=== PATIENT | male | born 1965 | race Caucasian/White ===

== ENCOUNTER 2019-01-12 14:01 | Emergency (ER) | payer MEDICARE ==
[~2019-01-12] VITALS: Ht 180.3 cm; Wt 167.8 kg
[~2019-01-12 14:01] MED LIST: ALLO100 PO; ALLO300 PO; ASPI325 PO; ASPI81CH; Depo-Testo100 MG/1 M; ERGO50000 PO; HYDCHL12.5 PO; HYDMOR2 PO; LISI20 PO; MARIJUANA; METF500 PO; OMEP20ER PO; OXYC5 PO; PIOG15 PO; POTCIT10 PO; PROM25 PO; RXHYDMOR2 PO; TAMS.4ER PO
[2019-01-12 15:07] LABS: BASOPHILS ABSOLUTE AUTO 0.07 K/mm3 (0.00-0.23); BASOPHILS PERCENT AUTO 1 % (0-2); EOSINOPHILS ABSOLUTE AUTO 0.11 K/mm3 (0.00-0.68); EOSINOPHILS PERCENT AUTO 1 % (0-6); Hematocrit 43.2 % (37.0-53.0); Hemoglobin 14.2 g/dL (13.5-17.5); IMMATURE GRAN ABSOLUTE AUTO 0.07 K/mm3 (0.00-0.10); IMMATURE GRAN PERCENT AUTO 1 % (0-1); LYMPHOCYTES ABSOLUTE AUTO 3.65 K/mm3 (0.84-5.20); LYMPHOCYTES PERCENT AUTO 24 % (21-46); MONOCYTES ABSOLUTE AUTO 0.73 K/mm3 (0.16-1.47); MONOCYTES PERCENT AUTO 5 % (4-13); Mean Corpuscular HGB 27.8 pg (26.0-34.0); Mean Corpuscular HGB Conc 32.9 g/dL (31.5-36.5); Mean Corpuscular Volume 85 fL (80-100); Mean Platelet Volume 9.3 fL (9.1-12.4); NEUTROPHILS ABSOLUTE AUTO 10.82 K/mm3 (1.96-9.15); NEUTROPHILS PERCENT AUTO 70 % (41-73); Platelet Count 379 K/mm3 (150-400); RDW Coefficient Variation 13.1 % (11.7-14.2); RDW Standard Deviation 40.2 fL (35.1-46.3); White Blood Cell Count 15.45 K/mm3 (4.00-11.30)
[2019-01-12 15:22] LABS: Alanine Aminotransfer (ALT/SGP 38 U/L (12-78); Alk Phos 51 U/L (50-136); Anion Gap 12 mmol/L (6-16); Aspartate Aminotrans (AST/SGOT 15 U/L (12-37); Bilirubin, Total 0.7 mg/dL (0.1-1.0); Blood Urea Nitrogen 27 mg/dL (8-24); Bun/Creatinine Ratio 15.9 (12.0-20.0); CO2, Blood 21 mmol/L (21-32); Calcium, Blood 9.6 mg/dL (8.5-10.1); Chloride, Blood 102 mmol/L (98-108); Globulin, Blood 4.2 g/dL (2.2-4.0); Glomerular Filtration Rate 45 (60-); Glucose, Blood 107 mg/dL (70-99); Magnesium, Blood 2.1 mg/dL (1.6-2.4); Potassium, Blood 4.4 mmol/L (3.5-5.5); Sodium, Blood 135 mmol/L (136-145); Total Protein, Blood 8.2 g/dL (6.4-8.2); Troponin I <0.015 ng/mL (0.000-0.040)
[2019-01-12 18:24] LABS: U Amphetamine Screen Not Detected; U Barbituate Screen Not Detected; U Benzodiazapine Screen Not Detected; U Buprenorphine Screen Not Detected; U Cannabinoids Screen Not Detected; U Cocaine Screen Not Detected; U Methadone Screen Not Detected; U Methamphetamine Screen Not Detected; U Opiates Screen Not Detected; U Oxycodone Screen Not Detected; U Phencyclidine Screen Not Detected; U Propoxyphene Screen Not Detected
== END 2019-01-12 18:43 | disposition home or self-care (01) ==
LOC: ER 14:01
PROVIDERS: Emergency Medicine
DX: R55 Syncope and collapse (principal); E86.0 Dehydration; R53.1 Weakness; Z87.442 Personal history of urinary calculi; Z79.82 Long term (current) use of aspirin; Z79.899 Other long term (current) drug therapy
CPT/HCPCS: 80053; 83735; 84484; 85025; 93005; 93010; J7030; J7120

== ENCOUNTER 2019-10-16 13:44 | Emergency (ER) | payer MEDICARE ==
[~2019-10-16] VITALS: Ht 177.8 cm; Wt 167.8 kg
[2019-10-16 14:18] LABS: BASOPHILS ABSOLUTE AUTO 0.05 K/mm3 (0.00-0.23); BASOPHILS PERCENT AUTO 0 % (0-2); EOSINOPHILS PERCENT AUTO 2 % (0-6); Hematocrit 43.1 % (37.0-53.0); Hemoglobin 14.2 g/dL (13.5-17.5); IMMATURE GRAN ABSOLUTE AUTO 0.06 K/mm3 (0.00-0.10); IMMATURE GRAN PERCENT AUTO 1 % (0-1); LYMPHOCYTES ABSOLUTE AUTO 3.35 K/mm3 (0.84-5.20); LYMPHOCYTES PERCENT AUTO 29 % (21-46); MONOCYTES ABSOLUTE AUTO 0.72 K/mm3 (0.16-1.47); MONOCYTES PERCENT AUTO 6 % (4-13); Mean Corpuscular HGB 27.7 pg (26.0-34.0); Mean Corpuscular HGB Conc 32.9 g/dL (31.5-36.5); Mean Corpuscular Volume 84 fL (80-100); NEUTROPHILS ABSOLUTE AUTO 7.37 K/mm3 (1.96-9.15); NEUTROPHILS PERCENT AUTO 63 % (41-73); Platelet Count 319 K/mm3 (150-400); RDW Standard Deviation 39.8 fL (35.1-46.3); Red Blood Cell Count 5.13 M/mm3 (4.30-5.90); White Blood Cell Count 11.75 K/mm3 (4.00-11.30)
[2019-10-16 14:29] LABS: Alanine Aminotransfer (ALT/SGP 32 U/L (12-78); Albumin, Blood 3.5 g/dL (3.4-5.0); Anion Gap 8 mmol/L (6-16); Aspartate Aminotrans (AST/SGOT 21 U/L (12-37); Blood Urea Nitrogen 23 mg/dL (8-24); Bun/Creatinine Ratio 24.8 (12.0-20.0); CO2, Blood 21 mmol/L (21-32); Calcium, Blood 9.2 mg/dL (8.5-10.1); Chloride, Blood 106 mmol/L (98-108); Creatinine, Blood 0.93 mg/dL (0.60-1.20); Glomerular Filtration Rate >60 (60-); Glucose, Blood 185 mg/dL (70-99); Potassium, Blood 4.5 mmol/L (3.5-5.5); Sodium, Blood 135 mmol/L (136-145)
[2019-10-16 14:33] LABS: Albumin/Globulin Ratio 0.8 (0.8-1.8); Alk Phos 50 U/L (50-136); Bilirubin, Total 0.2 mg/dL (0.1-1.0); Globulin, Blood 4.4 g/dL (2.2-4.0); Total Protein, Blood 7.9 g/dL (6.4-8.2); Troponin I <0.015 ng/mL (0.000-0.040)
[2019-10-16] MEDS ORDERED: BASAGLAR K100 UNIT/2 SC (15:53)
[2019-10-16] MEDS ORDERED: ZESTORETIC 20-121 EA PO (15:54)
[2019-10-16] MEDS ORDERED: Metformin HCl1000 MG PO (15:54)
== END 2019-10-16 16:15 | disposition home or self-care (01) ==
LOC: ER 13:44
PROVIDERS: Physician Assistant
DX: R00.2 Palpitations (principal); F43.9 Reaction to severe stress, unspecified; I10 Essential (primary) hypertension; F41.9 Anxiety disorder, unspecified; Z79.899 Other long term (current) drug therapy; Z79.84 Long term (current) use of oral hypoglycemic drugs; Z79.82 Long term (current) use of aspirin
CPT/HCPCS: 36415; 71046; 80053; 83880; 84484; 85025; 93005; 93010; 99285-25

== ENCOUNTER 2023-09-19 01:13 | Emergency (ER) | payer MEDICARE ==
[~2023-09-19] VITALS: Ht 175.3 cm; Wt 167.8 kg
[~2023-09-19 01:13] MED LIST changes: +BASAGLAR K100 UNIT/2 SC; +Metformin HCl1000 MG PO; +ZESTORETIC 20-121 EA PO
[2023-09-19 03:34] LABS: Influenza A, PCR NEGATIVE (NEGATIVE); Influenza B, PCR NEGATIVE (NEGATIVE); Resp Syncytial Virus, PCR NEGATIVE (NEGATIVE); SARS-Cov-2 (COVID-19) PCR, MMC NEGATIVE (NEGATIVE)
[2023-09-19] MEDS ORDERED: VENLAFAXINE HCL75 MG PO (05:18)
[2023-09-19 05:19] VITALS: BP 111/81
[2023-09-19 05:56] LABS: BASOPHILS ABSOLUTE AUTO 0.09 K/mm3 (0.00-0.23); BASOPHILS PERCENT AUTO 1 % (0-2); EOSINOPHILS PERCENT AUTO 2 % (0-6); Hematocrit 44.9 % (37.0-53.0); Hemoglobin 14.8 g/dL (13.5-17.5); IMMATURE GRAN ABSOLUTE AUTO 0.13 K/mm3 (0.00-0.10); IMMATURE GRAN PERCENT AUTO 1 % (0-1); LYMPHOCYTES ABSOLUTE AUTO 3.05 K/mm3 (0.84-5.20); LYMPHOCYTES PERCENT AUTO 18 % (21-46); MONOCYTES ABSOLUTE AUTO 1.02 K/mm3 (0.16-1.47); MONOCYTES PERCENT AUTO 6 % (4-13); Mean Corpuscular HGB 27.4 pg (26.0-34.0); Mean Corpuscular Volume 83 fL (80-100); Mean Platelet Volume 8.8 fL (9.1-12.4); NEUTROPHILS ABSOLUTE AUTO 12.56 K/mm3 (1.96-9.15); NEUTROPHILS PERCENT AUTO 73 % (41-73); Platelet Count 342 K/mm3 (150-400); RDW Coefficient Variation 12.9 % (11.7-14.2); RDW Standard Deviation 38.9 fL (35.1-46.3); Red Blood Cell Count 5.41 M/mm3 (4.30-5.90); White Blood Cell Count 17.25 K/mm3 (4.00-11.30)
[2023-09-19 06:27] LABS: Albumin, Blood 3.2 g/dL (3.4-5.0); Albumin/Globulin Ratio 0.6 (0.8-1.8); Bilirubin, Total 0.5 mg/dL (0.1-1.0); Bun/Creatinine Ratio 18.4 (12.0-20.0); Calcium, Blood 9.2 mg/dL (8.5-10.1); Creatinine, Blood 0.81 mg/dL (0.60-1.20); Globulin, Blood 5.4 g/dL (2.2-4.0); Potassium, Blood 4.6 mmol/L (3.5-5.5); Total Protein, Blood 8.6 g/dL (6.4-8.2)
[2023-09-19] MEDS ORDERED: AMOCLA875 PO (07:50)
== END 2023-09-19 08:05 | disposition home or self-care (01) ==
LOC: ER 01:13
PROVIDERS: Emergency Medicine
DX: J01.00 Acute maxillary sinusitis, unspecified (principal); B96.89 Other specified bacterial agents as the cause of diseases classified elsewhere; E11.65 Type 2 diabetes mellitus with hyperglycemia; D72.829 Elevated white blood cell count, unspecified; I10 Essential (primary) hypertension; Z79.82 Long term (current) use of aspirin; Z79.4 Long term (current) use of insulin; Z79.84 Long term (current) use of oral hypoglycemic drugs; Z79.899 Other long term (current) drug therapy; Z11.52 Encounter for screening for COVID-19
CPT/HCPCS: 0241U; 70470; 70487; 71046; 80053; 82947; 85025; 87081; 99284-25; A9270; Q9967

== ENCOUNTER 2025-09-10 11:24 | Inpatient (IN) | payer MEDICARE ==
[~2025-09-10] VITALS: Ht 177.8 cm; Wt 131.2 kg
[~2025-09-10 11:24] MED LIST changes: +AMOCLA875 PO; +VENLAFAXINE HCL75 MG PO
[2025-09-10 11:49] LABS: BASOPHILS ABSOLUTE AUTO 0.04 K/mm3 (0.00-0.23); BASOPHILS PERCENT AUTO 1 % (0-2); EOSINOPHILS ABSOLUTE AUTO 0.03 K/mm3 (0.00-0.68); EOSINOPHILS PERCENT AUTO 0 % (0-6); Hematocrit 44.5 % (37.0-53.0); Hemoglobin 15.2 g/dL (13.5-17.5); IMMATURE GRAN ABSOLUTE AUTO 0.03 K/mm3 (0.00-0.10); IMMATURE GRAN PERCENT AUTO 0 % (0-1); LYMPHOCYTES ABSOLUTE AUTO 2.19 K/mm3 (0.84-5.20); LYMPHOCYTES PERCENT AUTO 31 % (21-46); MONOCYTES ABSOLUTE AUTO 0.92 K/mm3 (0.16-1.47); MONOCYTES PERCENT AUTO 13 % (4-13); Mean Corpuscular HGB Conc 34.2 g/dL (31.5-36.5); Mean Corpuscular Volume 80 fL (80-100); NEUTROPHILS ABSOLUTE AUTO 3.90 K/mm3 (1.96-9.15); NEUTROPHILS PERCENT AUTO 55 % (41-73); NRBC ABSOLUTE 0.00 K/mm3 (0.00-0.02); NRBC Auto 0.0 /100 WBC (0.0-0.2); Platelet Count 256 K/mm3 (150-400); RDW Coefficient Variation 12.7 % (11.7-14.2); RDW Standard Deviation 36.1 fL (35.1-46.3)
[2025-09-10] MEDS ORDERED: Adenosine 3 MG/ML 4ML Vial IV ONE (12:05)
[2025-09-10 12:06] LABS: Alanine Aminotransfer (ALT/SGP 21.0 U/L (12-78); Albumin, Blood 3.7 g/dL (3.4-5.0); Albumin/Globulin Ratio 0.8 (0.8-1.8); Anion Gap 12.0 mmol/L (3-11); Aspartate Aminotrans (AST/SGOT 16.0 U/L (12-37); Bilirubin, Total 0.7 mg/dL (0.1-1.0); Blood Urea Nitrogen 20.0 mg/dL (8-24); CO2, Blood 22.0 mmol/L (21-32); Calcium, Blood 9.5 mg/dL (8.5-10.1); Chloride, Blood 100.0 mmol/L (98-108); Creatinine, Blood 1.38 mg/dL (0.60-1.20); D-Dimer, Quantitative 0.23 mg/L FEU (0.00-0.52); Globulin, Blood 4.7 g/dL (2.2-4.0); Glucose, Blood 197.0 mg/dL (70-99); Potassium, Blood 4.0 mmol/L (3.5-5.5); Prothrombin Time Results 11.9 Sec (9.7-11.5); Sodium, Blood 130.0 mmol/L (136-145); Total Protein, Blood 8.4 g/dL (6.4-8.2)
[2025-09-10] MEDS ORDERED: NS 1,000 ML IV ONE (12:07)
[2025-09-10] MEDS ORDERED: Diltiazem HCl 5 MG / ML 5ML Vial IV ONE ×2 (12:15→12:30)
[2025-09-10] MEDS ORDERED: Diltiazem HCl 5 MG / ML 5ML Vial ONE (12:27)
[2025-09-10 12:32] LABS: Influenza A, PCR NEGATIVE (NEGATIVE); Influenza B, PCR NEGATIVE (NEGATIVE); Resp Syncytial Virus, PCR NEGATIVE (NEGATIVE)
[2025-09-10 12:33] LABS: SARS-Cov-2 (COVID-19) PCR, MMC POSITIVE (NEGATIVE)
[2025-09-10] MEDS ORDERED: FLU VACC TS2025-26(6MOS UP)/PF 45 MCG/0.5 ML SYRINGE IM SCH (15:00)
[2025-09-10] MEDS ORDERED: NS 1,000 ML IV SCH (15:05)
[2025-09-10 16:02] VITALS: BP 115/80
[2025-09-10] MEDS ORDERED: ALLO100 PO (16:09)
[2025-09-10] MEDS ORDERED: Insulin Human Lispro 100 Units/ML 3ML Syringe SC SCH (16:30)
--- NOTE | 2025-09-10 16:56 | NUR ---
arrival to pcu/shift summary patient arrived to pcu from er at 1550 and walked independently in the room from the [facility]. patient vital signs are stable and tele is sinus rhythm 90s with pvc. patient is alert and oriented x4. neuro is intact. perrla. patient denies chest pain/pressure, shortness of breath or pain. patient lung sounds clear upper lobes and dim lower lobes. patient is able to void using the urinal. skin is clean dry and intact. see admit shift assessment for further detials. this rn called md [email or web address] to update on home meds being complete, and that patient is in sinus rhythm since 1308. this rn educated the patient in importance of using home cpap. plan of care is up to date.
[2025-09-10 19:19] VITALS: BP 105/67
--- NOTE | 2025-09-10 20:17 | NUR ---
SHIFT SUMMARY PT A&O X4, CALM, COOPERATIVE TO CARE. HR IN THE 80'S, SR W/ PVC'S, BBB. HE DENIES ANY CP/PRESSURE, NUMB/TINGLING, BP STABLE. PT ON RA, SpO2 >90%. PER PT HE HAS A HOME CPAP BUT DOES NOT WEAR IT CONSISTENTLY, ORDER PLACED IF PT WANTS TO WEAR WHILE HERE. HE HAS A CONGESTED COUGH, COVID POSITIVE. HE DENIES ANY SOB. PT USING URINAL AT BEDSDIE IND. PT RESTING IN BED AT THIS TIME. CALL LIGHT IN REACH.
[2025-09-10] MEDS ORDERED: Insulin Glargine-Yfgn 100 Unit/mL 3 ML SYR SC SCH (21:00)
[2025-09-11 00:11] VITALS: BP 123/85
[2025-09-11 03:35] VITALS: BP 117/72
--- NOTE | 2025-09-11 06:15 | NUR ---
SHIFT SUMMARY PT A&O X4, CALM, COOPERATIVE TO CARE. HR IN THE 80'S, SR, BBB. PT DENIES ANY CP/PRESSURE, NUMB/TINGLING, BP STABLE. SPo2 >90% ON RA, HE DENIES ANY SOB. PT USING URINAL IN ROOM IND. PT DID HAVE SOME CONGESTION LAST NIGHT, NOTIFIED ORDER PLACED. NO ACUTE CHANGES T/O NIGHT. PT TO HAVE ECHO TODAY. HE IS RESTIGN IN BED AT THIS TIME. CALL LIGHT IN REACH. WILL MONITOR PT AND REPORT TO ONCOMING RN.
[2025-09-11 07:09] LABS: Hematocrit 39.4 % (37.0-53.0); Hemoglobin 13.3 g/dL (13.5-17.5); Mean Corpuscular HGB Conc 33.8 g/dL (31.5-36.5); Mean Corpuscular Volume 80 fL (80-100); NRBC ABSOLUTE 0.00 K/mm3 (0.00-0.02); NRBC Auto 0.0 /100 WBC (0.0-0.2); Platelet Count 186 K/mm3 (150-400); RDW Coefficient Variation 12.7 % (11.7-14.2); RDW Standard Deviation 36.8 fL (35.1-46.3)
[2025-09-11 08:11] LABS: Albumin, Blood 3.1 g/dL (3.4-5.0); Anion Gap 9 mmol/L (3-11); Blood Urea Nitrogen 23 mg/dL (8-24); CHOL/HDL RATIO 3.3; CO2, Blood 24 mmol/L (21-32); Calcium, Blood 8.3 mg/dL (8.5-10.1); Chloride, Blood 104 mmol/L (98-108); Cholesterol 114 mg/dL (50-200); Creatinine, Blood 1.20 mg/dL (0.60-1.20); Glucose, Blood 125 mg/dL (70-99); HDL Cholesterol 35 mg/dL (>39); LDL/HDL RATIO 1.7; Low Density Lipoprotein Chol 60 mg/dL (0-110); Magnesium, Blood 2.0 mg/dL (1.6-2.4); Phosphorus, Blood 3.6 mg/dL (2.5-4.9); Potassium, Blood 4.0 mmol/L (3.5-5.5); Sodium, Blood 133 mmol/L (136-145); Triglycerides 93 mg/dL (30-160); Very Low Density Lipoprot Chol 18 mg/dL (6-32)
[2025-09-11 08:16] VITALS: BP 113/82
[2025-09-11] MEDS ORDERED: Enoxaparin 40 MG/0.4 ML SYR SC SCH (09:00)
--- NOTE | 2025-09-11 11:32 | NUR ---
UPDATE PT DECLINED LOVENOX SHOT DURING MORNING MED PASS. PT EDUCATED ON THE PURPOSE OF LOVENOX. PT STATES THAT HE UNDERSTOOD THE PURPOSE BUT STILL DECLINED RECIEVING HE LOVENOX SHOT. PT STATED THAT HE WOULD "GO FOR FREQUEN WALKS" TO KEEP BLOOD FLOWING.
[2025-09-11 12:14] VITALS: BP 118/77
[2025-09-11] MEDS ORDERED: METO25 PO (14:55)
[2025-09-11] MEDS ORDERED: ASPI81CH PO (14:56)
--- NOTE | 2025-09-11 15:28 | NUR ---
DISCHARE UPDATE DISCHARGE PACKET GONE OVR WITH PT AT 1510. PT DISHCARGED AT 1525 VIA WHEELCHAIR AND ON RA. PT ABLE TO TRANSFER SELF TO AND FROM WHEELCHAIR, TOLERATED ELL. PT PERSONAL BELONGINGS AND DISCHARGE PACKET IN BAG AND WITH PT AT TIME OF DISCHARGE. PT EDUCATED ON NEW MEDICATIONS AND TO CHECK HIS BP BEFORE TAKING METOPROLOL. PT INFORMED TO FOLLOW UP WITH [facility] TO BE PLACED. PT VERBALIZED UNDERSTANDING.
== END 2025-09-11 15:20 | disposition home or self-care (01) | DRG 308 ==
LOC: ER 11:24 → PCU 14:56
PROVIDERS: Student in an Organized Health Care Education/Training Program; ADMIT Internal Medicine
DX: I47.10 Supraventricular tachycardia, unspecified (principal); U07.1 COVID-19; E87.1 Hypo-osmolality and hyponatremia; N17.9 Acute kidney failure, unspecified; E66.2 Morbid (severe) obesity with alveolar hypoventilation; Z68.41 Body mass index [BMI] 40.0-44.9, adult; E86.0 Dehydration; E11.9 Type 2 diabetes mellitus without complications; I10 Essential (primary) hypertension; N40.0 Benign prostatic hyperplasia without lower urinary tract symptoms; I45.4 Nonspecific intraventricular block; Z91.199 Patient's noncompliance with other medical treatment and regimen due to unspecified reason; Z87.442 Personal history of urinary calculi; Z90.49 Acquired absence of other specified parts of digestive tract; Z88.2 Allergy status to sulfonamides; Z79.899 Other long term (current) drug therapy
CPT/HCPCS: 36415; 71045; 80053; 80061; 80069; 82947; 83036; 83735; 83880; 84100; 84484; 85025; 85027; 85379; 85610; 85730; 87637; 93005; 93010; 93306; 94762; 96365; 96375; 99291-25; A9270; J0153; J1815; J7030